=== PATIENT | male | born 1990 | race Caucasian/White ===

== ENCOUNTER 2017-12-22 22:56 | Emergency (ER) | payer OTHER ==
[~2017-12-22] VITALS: Ht 165.1 cm; Wt 74.8 kg
[2017-12-22 22:56] VITALS: BP 136/90
[~2017-12-22 22:56] MED LIST: ALPR1TAB2 PO
[2017-12-22] MEDS ORDERED: PHENYLEPHRINE 0.5% 15 ML BTL NS ONE (23:40)
[2017-12-22] MEDS ORDERED: KETOROLAC 30 MG/ML VIAL IM ONE (23:40)
[2017-12-23 00:15] VITALS: BP 129/81
== END 2017-12-23 01:03 | disposition home or self-care (01) ==
LOC: MED 22:56
DX: J06.9 Acute upper respiratory infection, unspecified (principal); I10 Essential (primary) hypertension; F17.200 Nicotine dependence, unspecified, uncomplicated; Z79.899 Other long term (current) drug therapy
CPT/HCPCS: 36415; 87804; 96372; 99284; J1885

== ENCOUNTER 2018-03-08 15:04 | Emergency (ER) | payer OTHER ==
[~2018-03-08] VITALS: Ht 165.1 cm; Wt 71.9 kg
[2018-03-08 15:15] VITALS: BP 121/87
--- NOTE | 2018-03-08 18:13 | NUR ---
NO ANSWER IN ER LOBBY
--- NOTE | 2018-03-08 18:20 | NUR ---
NO ANSWER IN ER LOBBY
== END 2018-03-08 18:20 | disposition left against medical advice (07) ==
LOC: MED 15:04
DX: R06.02 Shortness of breath (principal); Z53.21 Procedure and treatment not carried out due to patient leaving prior to being seen by health care provider
CPT/HCPCS: 71046; 99281; Q0092

== ENCOUNTER 2019-01-20 11:56 | Emergency (ER) | payer OTHER ==
[~2019-01-20] VITALS: Ht 165.1 cm; Wt 65.8 kg
[2019-01-20 12:01] VITALS: BP 117/79
--- NOTE | 2019-01-20 12:15 | NUR ---
PT C/O PRODUCTIVE COUGH WITH YELLOWISH PHLEGM, COLD SYMPTOMS, AND GENERALIZED BODY ACHES X1 DAY. PATIENT STATES PAIN OF 5/10 AT THIS TIME; VSS; PATIENT POSITIONED FOR COMFORT; HOB ELEVATED; BEDRAILS UP X1; BED DOWN. ER MD MADE AWARE OF PT STATUS.
[2019-01-20] MEDS ORDERED: ALBUTEROL SULFATE/IPRATROPIU 3 ML SOL IH ONE (12:35)
[2019-01-20 13:52] VITALS: BP 112/71
--- NOTE | 2019-01-20 13:52 | NUR ---
Patient discharged with v/s stable. Written and verbal after care instructions given and explained. Patient alert, oriented and verbalized understanding of instructions. Ambulatory with steady gait. All questions addressed prior to discharge. ID band removed. Patient advised to follow up with PMD. Rx of Albuterol INHALOR given. Patient educated on indication of medication including possible reaction and side effects. Opportunity to ask questions provided and answered.
== END 2019-01-20 13:52 | disposition home or self-care (01) ==
LOC: MED 11:56
DX: R05 Cough (principal); I10 Essential (primary) hypertension; Z79.899 Other long term (current) drug therapy; F17.210 Nicotine dependence, cigarettes, uncomplicated
CPT/HCPCS: 71045; 99283; J7620; Q0092